=== PATIENT | male | born 1985 | race Caucasian/White ===

== ENCOUNTER 2024-12-07 17:52 | Emergency (ER) | payer OTHER ==
[~2024-12-07] VITALS: Ht 170.2 cm; Wt 77.3 kg
[2024-12-07 18:00] VITALS: TEMP 97.8
[2024-12-07] MEDS: HYDROCODONE/ACETAMINOPHEN 10-325 MG TABLET PO ONE (19:16)
[2024-12-07 20:16] VITALS: BP 119/81; PULSE 98; RESP 16; O2SAT 96
[2024-12-07] MEDS: PERTUSS(ACELL),DIPH,TET/PF 0.5 ML SYRINGE [ADULT] IM. ONE (21:04)
[2024-12-07] MEDS: POVIDONE-IODINE 10% 15 ML SOLUTION UD TP ONE (21:04)
[2024-12-07] MEDS ORDERED: IBUP-1506 PO (22:22)
== END 2024-12-07 22:30 | disposition home or self-care (01) ==
LOC: EMS 17:52
DX: S61.412A Laceration without foreign body of left hand, initial encounter (principal); S62.351A Nondisplaced fracture of shaft of second metacarpal bone, left hand, initial encounter for closed fracture; F17.210 Nicotine dependence, cigarettes, uncomplicated; F15.90 Other stimulant use, unspecified, uncomplicated; X58.XXXA Exposure to other specified factors, initial encounter; Y93.89 Activity, other specified; Y92.89 Other specified places as the place of occurrence of the external cause; Y99.9 Unspecified external cause status
CPT/HCPCS: 70450; 99284